=== PATIENT | female | born 1955 | race Caucasian/White ===

== ENCOUNTER 2016-05-07 23:04 | Observation (INO) | payer BC ==
[~2016-05-07] VITALS: Ht 144.8 cm; Wt 87.1 kg
[~2016-05-07 23:04] MED LIST: ADVAIR HFA120 INHALA IH; ALLERGY RELIEF10 M1 PO; ALPRAZOLAM0.5 MG PO; ASPIRIN325 MG PO; ATORVASTATIN CA20 MG PO; BAYER ASPIRIN325 M1 PO; BREO ELLIPTA I1 EACH IH; COUMADIN,JANTOVE6 MG PO; COUMADIN5 MG PO; DEMADEX100 MG PO; DIOVAN HCT 11 TABLE1 PO; DIOVAN HCT 1601 EAC1 PO; FLEXERIL10 MG PO; FLONASE16 G1 BOTH NARES; HYDROCODON-ACE1 EAC7 PO; IRON325 M1 PO; LYRICA150 MG PO; MIRTAZAPINE15 MG PO; NEXIUM20 MG PO; OMEPRAZOLE40 M1 PO; PAROXETINE HCL40 MG PO; POTASSIUM CHLO20 MEQ PO; PROBENECID500 MG PO; SPIRIVA1 INHALATI IH; SYNTHROID150 MCG PO; SYNTHROID200 MCG PO; TRAMADOL HCL50 MG PO; TRAZODONE HCL50 MG PO; VYTORIN 10-401 EACH PO; XANAX0.5 MG PO
[2016-05-08 00:03] LABS: HEMATOCRIT 31.5 % (36.0-46.0); MCH 28.7 PG (29.0-34.0); MCHC 32.4 G/DL (30.0-36.0); MCV 88.7 FL (83-99); MEAN PLAT.VOLUME 10.3 uM^3 (9.5-12.4); PLATELET COUNT 159 K/uL (156-360); RBC DIS.WIDTH-CV 14.7 % (11.8-14.6); RBC DIS.WIDTH-SD 46.1 % (39-53); RED BLOOD COUNT 3.55 M/uL (3.80-5.20); WHITE BLOOD COUNT 5.5 K/uL (4.1-10.2)
[2016-05-08 00:28] LABS: CHLORIDE 107 mEq/L (99-109); POTASSIUM 4.4 mEq/L (3.7-5.4); SODIUM 142 mEq/L (136-147)
[2016-05-08 00:31] LABS: ANION GAP 12 MEQ/L (2-14)
[2016-05-08 00:32] LABS: PTT 71.7 (25-32)
[2016-05-08 00:33] LABS: INTER. NORMALIZED RATIO 12.3; PROTHROMBIN TIME 135.9 (9.2-11.2)
[2016-05-08 00:38] LABS: GLUCOSE 94 mg/dL (70-99)
[2016-05-08 00:42] LABS: GFR ESTIMATE (CALCULATED) 44 mL/min/
[2016-05-08 00:43] LABS: UREA NITROGEN (BUN) 25 mg/dL (9-23)
[2016-05-08] MEDS ORDERED: ZYRTEC10 M3 PO (01:35)
[2016-05-08] MEDS ORDERED: LITE COAT ASPI325 M1 PO (01:36)
[2016-05-08] MEDS ORDERED: TRAMADOL HCL50 MG PO (01:36)
[2016-05-08] MEDS ORDERED: COUMADIN1 MG PO (01:36)
[2016-05-08] MEDS ORDERED: TRAZODONE HCL150 MG PO (01:37)
[2016-05-08] MEDS ORDERED: ALPRAZOLAM0.5 MG PO ×2 (01:37)
[2016-05-08] MEDS ORDERED: POTASSIUM CHLO20 ME2 PO (01:38)
[2016-05-08] MEDS ORDERED: VENLAFAXINE HC150 M1 PO (01:39)
[2016-05-08] MEDS ORDERED: TYLENOL ARTHRI650 MG PO (01:39)
[2016-05-08 04:57] VITALS: BP 131/61
[2016-05-08 08:40] VITALS: BP 121/66
[2016-05-08 10:03] LABS: INTER. NORMALIZED RATIO 2.8; PROTHROMBIN TIME 29.3 (9.2-11.2)
[2016-05-08 11:35] LABS: HEMATOCRIT 30.1 % (36.0-46.0); MCH 28.3 PG (29.0-34.0); MCHC 31.9 G/DL (30.0-36.0); MCV 88.8 FL (83-99); MEAN PLAT.VOLUME 10.9 uM^3 (9.5-12.4); PLATELET COUNT 156 K/uL (156-360); RBC DIS.WIDTH-CV 14.9 % (11.8-14.6); RBC DIS.WIDTH-SD 48.3 % (39-53); RED BLOOD COUNT 3.39 M/uL (3.80-5.20); WHITE BLOOD COUNT 5.2 K/uL (4.1-10.2)
[2016-05-08 11:51] LABS: ANION GAP 11 MEQ/L (2-14); CHLORIDE 103 MEQ/L (99-109); GFR ESTIMATE (CALCULATED) 54 mL/min/; GLUCOSE 127 mg/dL (70-99); POTASSIUM 3.7 MEQ/L (3.7-5.4); SAMPLE HEMOLYSIS CHECK 0; SAMPLE ICTERIC CHECK 0; SAMPLE LIPEMIA CHECK 0; SODIUM 139 MEQ/L (136-147); UREA NITROGEN (BUN) 21 mg/dL (9-23)
[2016-05-08] MEDS ORDERED: POTASSIUM CHLO10 ME4 PO (12:43)
[2016-05-08 12:51] VITALS: BP 124/60
[2016-05-08 16:31] VITALS: BP 136/65
[2016-05-08] MEDS ORDERED: VICODIN HP 10-1 EACH PO (19:06)
[2016-05-08] MEDS ORDERED: LEVAQUIN500 MG PO (19:06)
== END 2016-05-08 20:20 | disposition home health service (06) ==
LOC: EME 23:04 → EDOF 05-08 01:37 → 5WEST 05-08 04:33
PROVIDERS: Emergency Medicine
DX: R04.0 Epistaxis (principal); T45.515A Adverse effect of anticoagulants, initial encounter; R23.3 Spontaneous ecchymoses; J32.9 Chronic sinusitis, unspecified; I48.2 Chronic atrial fibrillation; Z79.01 Long term (current) use of anticoagulants; J45.909 Unspecified asthma, uncomplicated; K21.9 Gastro-esophageal reflux disease without esophagitis; I10 Essential (primary) hypertension; E03.9 Hypothyroidism, unspecified; F32.9 Major depressive disorder, single episode, unspecified; G89.29 Other chronic pain; I50.9 Heart failure, unspecified; M79.7 Fibromyalgia; Z91.19 Patient's noncompliance with other medical treatment and regimen; E66.9 Obesity, unspecified; M19.90 Unspecified osteoarthritis, unspecified site
CPT/HCPCS: 80048; 85027; 85610; 85730; 86850; 86900; 86901; 94640; 99281; 99285; G0378; J3430; J7050

== ENCOUNTER 2016-05-22 05:42 | Inpatient (IN) | payer BC ==
[~2016-05-22] VITALS: Ht 144.8 cm; Wt 94.0 kg
[2016-05-22] VITALS (29 sets, daily range): BP systolic 91–119; BP diastolic 24–78
[~2016-05-22 05:42] MED LIST changes: +COUMADIN1 MG PO; +LEVAQUIN500 MG PO; +LITE COAT ASPI325 M1 PO; +POTASSIUM CHLO10 ME4 PO; +POTASSIUM CHLO20 ME2 PO; +TRAZODONE HCL150 MG PO; +TYLENOL ARTHRI650 MG PO; +VENLAFAXINE HC150 M1 PO; +VICODIN HP 10-1 EACH PO; +ZYRTEC10 M3 PO
[2016-05-22 06:29] LABS: HEMATOCRIT 25.6 % (36.0-46.0); MCH 28.6 PG (29.0-34.0); MCHC 31.6 G/DL (30.0-36.0); MCV 90.5 FL (83-99); MEAN PLAT.VOLUME 10.7 uM^3 (9.5-12.4); PLATELET COUNT 176 K/uL (156-360); RBC DIS.WIDTH-CV 15.9 % (11.8-14.6); RBC DIS.WIDTH-SD 50.6 % (39-53); RED BLOOD COUNT 2.83 M/uL (3.80-5.20)
[2016-05-22 06:44] LABS: PROTHROMBIN TIME 54.3 (9.2-11.2); PTT 34.5 (25-32)
[2016-05-22 06:45] LABS: INTER. NORMALIZED RATIO 5.1
[2016-05-22 06:48] LABS: TROP-I INTERPRETATION NEGATIVE; TROPONIN-I 0.01 ng/mL (0.0-0.30)
[2016-05-22 08:27] LABS: ANION GAP 15 MEQ/L (2-14); CHLORIDE 111 MEQ/L (99-109); GFR ESTIMATE (CALCULATED) 30 mL/min/; GLUCOSE 108 mg/dL (70-99); POTASSIUM 4.7 MEQ/L (3.7-5.4); SAMPLE HEMOLYSIS CHECK 0; SAMPLE ICTERIC CHECK 0; SAMPLE LIPEMIA CHECK 0; SODIUM 144 MEQ/L (136-147); UREA NITROGEN (BUN) 35 mg/dL (9-23)
[2016-05-22] MEDS ORDERED: KLOR-CON M2020 MEQ PO (09:16)
[2016-05-22] MEDS ORDERED: WARFARIN SODIUM6 MG PO (09:17)
[2016-05-22 11:20] LABS: METH RESISTANT S AUREUS PCR NEGATIVE (NEGATIVE)
[2016-05-22 11:22] LABS: PROBE CHECK PASS; SPECIMEN PROCESSING CONTROL PASS
[2016-05-22 13:10] LABS: ADD MIUA? NO; BILIRUBIN NEGATIVE; BLOOD NEGATIVE; COLOR YELLOW ((YELLOW)); GLUCOSE (STRIP) NEGATIVE; KETONES NEGATIVE; LEUKOCYTES NEGATIVE; NITRITE NEGATIVE; PROTEIN (STRIP) NEGATIVE; SPECIFIC GRAVITY 1.012 (1.000-1.030); UCUL ADDED? NO; UROBILINOGEN 0.2 MG/DL (0.2-1.0)
[2016-05-22 17:10] LABS: MAGNESIUM 1.4 mg/dl (1.3-2.7)
[2016-05-22 17:11] LABS: EOSINOPHIL (%) 2.3 % (0-5); EOSINOPHIL COUNT 0.1 K/uL (0-0.3); HEMATOCRIT 17.1 % (36.0-46.0); IMMATURE GRANULOCYTE (%) 0.2 % (0.0-0.7); LYMPHOCYTE COUNT 1.2 K/uL (1.0-2.8); MCH 28.9 PG (29.0-34.0); MCHC 32.2 G/DL (30.0-36.0); MONOCYTE (%) 12.9 % (3-12); MONOCYTE COUNT 0.6 K/uL (0-0.8); NEUTROPHIL (%) 60.2 % (45-76); NEUTROPHIL COUNT 2.9 K/uL (1.8-6.4); PTT 26.4 (25-32); RBC DIS.WIDTH-CV 16.6 % (11.8-14.6); RBC DIS.WIDTH-SD 54.2 % (39-53); WHITE BLOOD COUNT 4.9 K/uL (4.1-10.2)
[2016-05-22 17:15] LABS: TROP-I INTERPRETATION NEGATIVE; TROPONIN-I 0.02 ng/mL (0.0-0.30)
[2016-05-22 17:22] LABS: INTER. NORMALIZED RATIO 1.7; PROTHROMBIN TIME 17.4 (9.2-11.2)
[2016-05-22 18:17] LABS: MEAN PLAT.VOLUME 10.5 uM^3 (9.5-12.4); PLAT.SUFFICIENCY DECREASED; PLATELET COUNT 128 K/uL (156-360); USER ID LYM
[2016-05-23] VITALS (32 sets, daily range): BP systolic 93–144; BP diastolic 33–84
[2016-05-23 01:52] LABS: MCH 28.4 PG (29.0-34.0); MCHC 32.9 G/DL (30.0-36.0); MCV 86.4 FL (83-99); PLATELET COUNT 134 K/uL (156-360); RBC DIS.WIDTH-CV 16.2 % (11.8-14.6); RBC DIS.WIDTH-SD 49.1 % (39-53); RED BLOOD COUNT 3.24 M/uL (3.80-5.20)
[2016-05-23 01:56] LABS: INTER. NORMALIZED RATIO 1.3; PROTHROMBIN TIME 13.4 (9.2-11.2)
[2016-05-23 06:02] LABS: HEMATOCRIT 25.9 % (36.0-46.0); MCH 28.4 PG (29.0-34.0); MCHC 32.8 G/DL (30.0-36.0); MCV 86.6 FL (83-99); MEAN PLAT.VOLUME 10.4 uM^3 (9.5-12.4); PLATELET COUNT 123 K/uL (156-360); RBC DIS.WIDTH-CV 16.8 % (11.8-14.6); RBC DIS.WIDTH-SD 52.4 % (39-53); RED BLOOD COUNT 2.99 M/uL (3.80-5.20); WHITE BLOOD COUNT 5.3 K/uL (4.1-10.2)
[2016-05-23 06:10] LABS: EOSINOPHIL (%) 2.5 % (0-5); EOSINOPHIL COUNT 0.1 K/uL (0-0.3); IMMATURE GRANULOCYTE (%) 0.2 % (0.0-0.7); LYMPHOCYTE COUNT 1.6 K/uL (1.0-2.8); MONOCYTE (%) 8.7 % (3-12); MONOCYTE COUNT 0.5 K/uL (0-0.8); NEUTROPHIL (%) 57.5 % (45-76); NEUTROPHIL COUNT 3.1 K/uL (1.8-6.4)
[2016-05-23 06:25] LABS: INTER. NORMALIZED RATIO 1.2; PROTHROMBIN TIME 12.2 (9.2-11.2)
[2016-05-23 06:32] LABS: ANION GAP 7 MEQ/L (2-14); CHLORIDE 113 MEQ/L (99-109); GFR ESTIMATE (CALCULATED) 54 mL/min/; GLUCOSE 94 mg/dL (70-99); POTASSIUM 4.3 MEQ/L (3.7-5.4); SAMPLE HEMOLYSIS CHECK 0; SAMPLE ICTERIC CHECK 0; SAMPLE LIPEMIA CHECK 0; SODIUM 144 MEQ/L (136-147); UREA NITROGEN (BUN) 48 mg/dL (9-23)
[2016-05-23 12:43] LABS: HEMATOCRIT 32.1 % (36.0-46.0); MCH 28.6 PG (29.0-34.0); MCV 86.8 FL (83-99); MEAN PLAT.VOLUME 10.4 uM^3 (9.5-12.4); PLATELET COUNT 120 K/uL (156-360); RBC DIS.WIDTH-CV 16.9 % (11.8-14.6); RBC DIS.WIDTH-SD 52.3 % (39-53); WHITE BLOOD COUNT 6.8 K/uL (4.1-10.2)
[2016-05-23 20:45] LABS: HEMATOCRIT 29.2 % (36.0-46.0); MCHC 33.6 G/DL (30.0-36.0); MCV 86.4 FL (83-99); MEAN PLAT.VOLUME 11.3 uM^3 (9.5-12.4); PLATELET COUNT 120 K/uL (156-360); RBC DIS.WIDTH-CV 16.7 % (11.8-14.6); RBC DIS.WIDTH-SD 51.2 % (39-53); RED BLOOD COUNT 3.38 M/uL (3.80-5.20); WHITE BLOOD COUNT 5.8 K/uL (4.1-10.2)
[2016-05-23 20:52] LABS: CHLORIDE 114 mEq/L (99-109); SODIUM 143 mEq/L (136-147)
[2016-05-23 20:53] LABS: MAGNESIUM 1.6 mg/dL (1.3-2.7)
[2016-05-23 20:54] LABS: GLUCOSE 109 mg/dL (70-99)
[2016-05-23 20:55] LABS: ANION GAP 7 MEQ/L (2-14)
[2016-05-23 20:58] LABS: GFR ESTIMATE (CALCULATED) > 59 mL/min/
[2016-05-23 20:59] LABS: UREA NITROGEN (BUN) 42 mg/dL (9-23)
[2016-05-24] VITALS (13 sets, daily range): BP systolic 95–132; BP diastolic 35–58
[2016-05-24 03:54] LABS: HEMATOCRIT 28.9 % (36.0-46.0); MCH 28.5 PG (29.0-34.0); MCHC 32.9 G/DL (30.0-36.0); MCV 86.8 FL (83-99); MEAN PLAT.VOLUME 10.1 uM^3 (9.5-12.4); PLATELET COUNT 127 K/uL (156-360); RBC DIS.WIDTH-CV 16.5 % (11.8-14.6); RBC DIS.WIDTH-SD 51.3 % (39-53); RED BLOOD COUNT 3.33 M/uL (3.80-5.20); WHITE BLOOD COUNT 5.2 K/uL (4.1-10.2)
[2016-05-24 12:20] LABS: HEMATOCRIT 29.1 % (36.0-46.0); MCH 28.9 PG (29.0-34.0); MCV 87.7 FL (83-99); MEAN PLAT.VOLUME 10.8 uM^3 (9.5-12.4); PLATELET COUNT 123 K/uL (156-360); RBC DIS.WIDTH-CV 16.5 % (11.8-14.6); RBC DIS.WIDTH-SD 52.2 % (39-53); RED BLOOD COUNT 3.32 M/uL (3.80-5.20); WHITE BLOOD COUNT 5.2 K/uL (4.1-10.2)
[2016-05-24 17:44] LABS: HEMATOCRIT 28.3 % (36.0-46.0); MCH 28.8 PG (29.0-34.0); MCHC 33.2 G/DL (30.0-36.0); MCV 86.8 FL (83-99); PLATELET COUNT 121 K/uL (156-360); RBC DIS.WIDTH-CV 16.4 % (11.8-14.6); RBC DIS.WIDTH-SD 51.9 % (39-53); RED BLOOD COUNT 3.26 M/uL (3.80-5.20)
[2016-05-24 19:43] LABS: HEMATOCRIT 27.9 % (36.0-46.0); MCH 28.8 PG (29.0-34.0); MCV 87.5 FL (83-99); MEAN PLAT.VOLUME 10.2 uM^3 (9.5-12.4); PLATELET COUNT 137 K/uL (156-360); RBC DIS.WIDTH-CV 16.2 % (11.8-14.6); RBC DIS.WIDTH-SD 49.5 % (39-53); RED BLOOD COUNT 3.19 M/uL (3.80-5.20); WHITE BLOOD COUNT 5.6 K/uL (4.1-10.2)
[2016-05-25 05:08] VITALS: BP 139/63
[2016-05-25 06:57] LABS: HEMATOCRIT 28.8 % (36.0-46.0); MCH 28.7 PG (29.0-34.0); MCHC 32.6 G/DL (30.0-36.0); MCV 88.1 FL (83-99); MEAN PLAT.VOLUME 10.5 uM^3 (9.5-12.4); PLATELET COUNT 126 K/uL (156-360); RBC DIS.WIDTH-CV 16.2 % (11.8-14.6); RED BLOOD COUNT 3.27 M/uL (3.80-5.20); WHITE BLOOD COUNT 4.4 K/uL (4.1-10.2)
[2016-05-25 07:26] LABS: ALKALINE PHOSPHATASE 91 IU/L (3-129); ANION GAP 8 MEQ/L (2-14); CHLORIDE 108 MEQ/L (99-109); GFR ESTIMATE (CALCULATED) > 59 mL/min/; GLUCOSE 99 mg/dL (70-99); POTASSIUM 3.6 MEQ/L (3.7-5.4); SAMPLE HEMOLYSIS CHECK 0; SAMPLE ICTERIC CHECK 0; SAMPLE LIPEMIA CHECK 0; SODIUM 141 MEQ/L (136-147); TOTAL BILIRUBIN 0.6 MG/DL (0.0-1.0)
[2016-05-25 07:27] LABS: UREA NITROGEN (BUN) 19 mg/dL (9-23)
[2016-05-25 07:45] VITALS: BP 127/57
[2016-05-25 11:28] VITALS: BP 121/58
[2016-05-25 15:40] VITALS: BP 141/75
[2016-05-25 19:44] LABS: HEMATOCRIT 32.8 % (36.0-46.0); MCH 28.6 PG (29.0-34.0); MCHC 32.3 G/DL (30.0-36.0); MCV 88.4 FL (83-99); MEAN PLAT.VOLUME 10.7 uM^3 (9.5-12.4); RBC DIS.WIDTH-CV 16.3 % (11.8-14.6); RBC DIS.WIDTH-SD 51.6 % (39-53); RED BLOOD COUNT 3.71 M/uL (3.80-5.20)
[2016-05-25 20:06] LABS: PLATELET COUNT 168 K/uL (156-360); WHITE BLOOD COUNT 5.9 K/uL (4.1-10.2)
[2016-05-25 21:24] VITALS: BP 107/54
[2016-05-26 00:29] VITALS: BP 106/55
[2016-05-26 05:40] VITALS: BP 92/54
[2016-05-26 06:06] VITALS: BP 115/57
[2016-05-26 07:13] LABS: INTER. NORMALIZED RATIO 1.1; PROTHROMBIN TIME 10.7 (9.2-11.2)
[2016-05-26 07:20] LABS: EOSINOPHIL (%) ND % (0-5); HEMATOCRIT ND % (36.0-46.0); IMM.PLATELET FRACTION ND (1-7); MCH ND PG (29.0-34.0); MCHC ND G/DL (30.0-36.0); MCV ND FL (83-99); MEAN PLAT.VOLUME ND uM^3 (9.5-12.4); MONOCYTE (%) ND % (3-12); NEUTROPHIL (%) ND % (45-76); PLATELET COUNT ND K/uL (156-360); RBC DIS.WIDTH-CV ND % (11.8-14.6); RBC DIS.WIDTH-SD ND % (39-53); RED BLOOD COUNT ND M/uL (3.80-5.20); WHITE BLOOD COUNT ND K/uL (4.1-10.2)
[2016-05-26 07:21] LABS: BASOPHIL COUNT ND K/uL (0-0.1); EOSINOPHIL COUNT ND K/uL (0-0.3); IMMATURE GRANULOCYTE (%) ND % (0.0-0.7); IMMATURE GRANULOCYTE COUNT ND K/uL; LYMPHOCYTE COUNT ND K/uL (1.0-2.8); MONOCYTE COUNT ND K/uL (0-0.8); NEUTROPHIL COUNT ND K/uL (1.8-6.4); NRBC (%) ND /100 WBC (0-0); NRBC COUNT ND K/uL (0-0)
[2016-05-26 08:44] LABS: HEMATOCRIT 28.5 % (36.0-46.0); MCH 29.1 PG (29.0-34.0); MCHC 32.6 G/DL (30.0-36.0); MCV 89.1 FL (83-99); MEAN PLAT.VOLUME 10.9 uM^3 (9.5-12.4); PLATELET COUNT 155 K/uL (156-360); RBC DIS.WIDTH-CV 16.2 % (11.8-14.6); RBC DIS.WIDTH-SD 51.8 % (39-53); WHITE BLOOD COUNT 4.7 K/uL (4.1-10.2)
[2016-05-26 08:59] LABS: EOSINOPHIL (%) 4.1 % (0-5); EOSINOPHIL COUNT 0.2 K/uL (0-0.3); IMMATURE GRANULOCYTE (%) 0.2 % (0.0-0.7); LYMPHOCYTE COUNT 1.1 K/uL (1.0-2.8); MONOCYTE COUNT 0.4 K/uL (0-0.8); NEUTROPHIL (%) 63.7 % (45-76)
[2016-05-26 13:40] VITALS: BP 110/53
[2016-05-26 18:15] LABS: MCH 29.4 PG (29.0-34.0); MCHC 33.1 G/DL (30.0-36.0); MCV 88.7 FL (83-99); MEAN PLAT.VOLUME 10.9 uM^3 (9.5-12.4); PLATELET COUNT 154 K/uL (156-360); RBC DIS.WIDTH-CV 16.2 % (11.8-14.6); RBC DIS.WIDTH-SD 51.8 % (39-53); RED BLOOD COUNT 3.27 M/uL (3.80-5.20); WHITE BLOOD COUNT 4.9 K/uL (4.1-10.2)
[2016-05-26 18:48] LABS: EOSINOPHIL (%) 3.7 % (0-5); EOSINOPHIL COUNT 0.2 K/uL (0-0.3); IMMATURE GRANULOCYTE (%) 0.2 % (0.0-0.7); MONOCYTE COUNT 0.5 K/uL (0-0.8); NEUTROPHIL (%) 63.9 % (45-76); NEUTROPHIL COUNT 3.1 K/uL (1.8-6.4)
[2016-05-26 19:22] VITALS: BP 112/54
[2016-05-26 23:21] VITALS: BP 114/55
[2016-05-27 03:59] VITALS: BP 104/58
[2016-05-27 07:27] LABS: MCV 87.9 FL (83-99); MEAN PLAT.VOLUME 10.6 uM^3 (9.5-12.4); PLATELET COUNT 148 K/uL (156-360); RBC DIS.WIDTH-CV 16.3 % (11.8-14.6); RED BLOOD COUNT 3.07 M/uL (3.80-5.20); WHITE BLOOD COUNT 3.5 K/uL (4.1-10.2)
[2016-05-27 07:40] VITALS: BP 112/51
[2016-05-27 07:40] LABS: EOSINOPHIL (%) 5.2 % (0-5); EOSINOPHIL COUNT 0.2 K/uL (0-0.3); LYMPHOCYTE COUNT 0.7 K/uL (1.0-2.8); MONOCYTE (%) 13.2 % (3-12); MONOCYTE COUNT 0.5 K/uL (0-0.8); NEUTROPHIL (%) 60.6 % (45-76); NEUTROPHIL COUNT 2.1 K/uL (1.8-6.4)
[2016-05-27 07:48] LABS: ANION GAP 8 MEQ/L (2-14); CHLORIDE 109 MEQ/L (99-109); GFR ESTIMATE (CALCULATED) 54 mL/min/; GLUCOSE 89 mg/dL (70-99); POTASSIUM 3.9 MEQ/L (3.7-5.4); SAMPLE HEMOLYSIS CHECK 0; SAMPLE ICTERIC CHECK 0; SAMPLE LIPEMIA CHECK 0; SODIUM 142 MEQ/L (136-147); UREA NITROGEN (BUN) 17 mg/dL (9-23)
[2016-05-27 15:35] VITALS: BP 122/58
[2016-05-27 18:17] LABS: HEMATOCRIT 28.1 % (36.0-46.0); MCH 28.9 PG (29.0-34.0); MCHC 32.4 G/DL (30.0-36.0); MCV 89.2 FL (83-99); MEAN PLAT.VOLUME 11.2 uM^3 (9.5-12.4); PLATELET COUNT 141 K/uL (156-360); RBC DIS.WIDTH-CV 16.4 % (11.8-14.6); RBC DIS.WIDTH-SD 52.2 % (39-53); RED BLOOD COUNT 3.15 M/uL (3.80-5.20); WHITE BLOOD COUNT 3.6 K/uL (4.1-10.2)
[2016-05-27 19:15] VITALS: BP 107/53
[2016-05-27 21:09] LABS: HEMATOCRIT 28.2 % (36.0-46.0); MCH 29.4 PG (29.0-34.0); MCV 89.2 FL (83-99); MEAN PLAT.VOLUME 11.2 uM^3 (9.5-12.4); PLATELET COUNT 149 K/uL (156-360); RBC DIS.WIDTH-CV 16.2 % (11.8-14.6); RBC DIS.WIDTH-SD 51.1 % (39-53); RED BLOOD COUNT 3.16 M/uL (3.80-5.20); WHITE BLOOD COUNT 3.6 K/uL (4.1-10.2)
[2016-05-27 21:16] LABS: EOSINOPHIL COUNT 0.1 K/uL (0-0.3); IMMATURE GRANULOCYTE (%) 0.3 % (0.0-0.7); LYMPHOCYTE COUNT 0.5 K/uL (1.0-2.8); MONOCYTE (%) 14.3 % (3-12); MONOCYTE COUNT 0.5 K/uL (0-0.8); NEUTROPHIL COUNT 2.5 K/uL (1.8-6.4)
[2016-05-27 23:20] VITALS: BP 138/60
[2016-05-28] MEDS ORDERED: GABAPENTIN100 MG PO (01:20)
[2016-05-28] MEDS ORDERED: METHYLPREDNISOL16 MG PO (01:20)
[2016-05-28] MEDS ORDERED: FLONASE16 G1 BOTH NARES (01:20)
[2016-05-28] MEDS ORDERED: LEVOFLOXACIN250 MG PO (01:20)
[2016-05-28] MEDS ORDERED: HYDROMORPHONE HC4 MG PO (01:20)
[2016-05-28] MEDS ORDERED: DULOXETINE HCL60 MG PO (01:20)
[2016-05-28] MEDS ORDERED: PANTOPRAZOLE SO40 MG PO (01:20)
[2016-05-28 06:40] LABS: HEMATOCRIT 29.9 % (36.0-46.0); MCH 29.3 PG (29.0-34.0); MCHC 32.8 G/DL (30.0-36.0); MCV 89.3 FL (83-99); MEAN PLAT.VOLUME 10.7 uM^3 (9.5-12.4); PLATELET COUNT 156 K/uL (156-360); RBC DIS.WIDTH-CV 16.7 % (11.8-14.6); RBC DIS.WIDTH-SD 53.5 % (39-53); RED BLOOD COUNT 3.35 M/uL (3.80-5.20); WHITE BLOOD COUNT 3.7 K/uL (4.1-10.2)
[2016-05-28 06:53] LABS: EOSINOPHIL (%) 0.8 % (0-5); IMMATURE GRANULOCYTE (%) 0.3 % (0.0-0.7); LYMPHOCYTE COUNT 0.5 K/uL (1.0-2.8); MONOCYTE (%) 3.2 % (3-12); MONOCYTE COUNT 0.1 K/uL (0-0.8); NEUTROPHIL (%) 82.2 % (45-76); NEUTROPHIL COUNT 3.1 K/uL (1.8-6.4)
[2016-05-28 07:30] VITALS: BP 103/54
[2016-05-28 12:29] VITALS: BP 128/60
[2016-05-28 16:07] VITALS: BP 122/57
[2016-05-28 18:30] LABS: HEMATOCRIT 29.8 % (36.0-46.0); MCH 29.3 PG (29.0-34.0); MCHC 32.6 G/DL (30.0-36.0); MEAN PLAT.VOLUME 10.6 uM^3 (9.5-12.4); PLATELET COUNT 157 K/uL (156-360); RBC DIS.WIDTH-CV 16.5 % (11.8-14.6); RBC DIS.WIDTH-SD 52.4 % (39-53); RED BLOOD COUNT 3.31 M/uL (3.80-5.20); WHITE BLOOD COUNT 3.7 K/uL (4.1-10.2)
== END 2016-05-28 19:30 | disposition home or self-care (01) | DRG 378 ==
LOC: EME 05:42 → 4WEST 08:45 → 2EASTP 08:45 → 4EAST 08:45 → EDOF 08:45 → 4WEST 09:40 → 4EAST 05-24 23:19 → 2EASTP 05-26 05:52
PROVIDERS: Emergency Medicine; Internal Medicine; Internal Medicine Critical Care Medicine; Internal Medicine Gastroenterology; Specialist
PROC: 3E0 Administration, Physiological Systems and Anatomical Regions, Introduction (ICD-10-PCS; principal; 2016-05-23)
PROC: 0D568ZZ Destruction of Stomach, Via Natural or Artificial Opening Endoscopic (ICD-10-PCS; principal; 2016-05-23)
DX: K92.2 Gastrointestinal hemorrhage, unspecified (principal); N17.9 Acute kidney failure, unspecified; I95.9 Hypotension, unspecified; J44.9 Chronic obstructive pulmonary disease, unspecified; Q24.9 Congenital malformation of heart, unspecified; I48.2 Chronic atrial fibrillation; E03.9 Hypothyroidism, unspecified; I12.9 Hypertensive chronic kidney disease with stage 1 through stage 4 chronic kidney disease, or unspecified chronic kidney disease; M10.9 Gout, unspecified; E86.1 Hypovolemia; K92.1 Melena; R51 Headache; R13.10 Dysphagia, unspecified; D64.9 Anemia, unspecified; I45.10 Unspecified right bundle-branch block; N18.9 Chronic kidney disease, unspecified; F32.9 Major depressive disorder, single episode, unspecified; R74.8 Abnormal levels of other serum enzymes; G47.30 Sleep apnea, unspecified; K21.9 Gastro-esophageal reflux disease without esophagitis; T45.515A Adverse effect of anticoagulants, initial encounter; I50.9 Heart failure, unspecified; Z88.2 Allergy status to sulfonamides; Z79.01 Long term (current) use of anticoagulants
CPT/HCPCS: 70220; 71010; 71020; 80048; 80048 91; 80053; 81003; 83735; 84100; 84484; 85025; 85025 91; 85027; 85610; 85730; 86850; 86900; 86901; 86920; 87641; 93005; 94640; 94640 76; 94760; 94799; 99202; 99281; 99285; C9113; J0696; J2250; J2930; J3430; J7030; J7050; J7509; P9016; P9017

== ENCOUNTER 2016-07-30 15:50 | Inpatient (IN) | payer BC ==
[~2016-07-30] VITALS: Ht 149.9 cm; Wt 83.0 kg
[~2016-07-30 15:50] MED LIST changes: +DULOXETINE HCL60 MG PO; +GABAPENTIN100 MG PO; +HYDROMORPHONE HC4 MG PO; +KLOR-CON M2020 MEQ PO; +LEVOFLOXACIN250 MG PO; +METHYLPREDNISOL16 MG PO; +PANTOPRAZOLE SO40 MG PO; +WARFARIN SODIUM6 MG PO
[2016-07-30 16:49] LABS: EOSINOPHIL COUNT 0.1 K/uL (0-0.3); HEMATOCRIT 39.8 % (36.0-46.0); IMMATURE GRANULOCYTE (%) 0.2 % (0.0-0.7); INSTRUMENT ABS NEUTROPHIL CT 6.6 K/uL; LYMPHOCYTE COUNT 0.9 K/uL (1.0-2.8); MCH 27.9 PG (29.0-34.0); MCHC 31.9 G/DL (30.0-36.0); MCV 87.3 FL (83-99); MEAN PLAT.VOLUME 10.7 uM^3 (9.5-12.4); MONOCYTE (%) 7.3 % (3-12); MONOCYTE COUNT 0.6 K/uL (0-0.8); NEUTROPHIL (%) 79.9 % (45-76); NEUTROPHIL COUNT 6.6 K/uL (1.8-6.4); PLATELET COUNT 193 K/uL (156-360); RBC DIS.WIDTH-CV 13.2 % (11.8-14.6); RBC DIS.WIDTH-SD 42.5 % (39-53); RED BLOOD COUNT 4.56 M/uL (3.80-5.20); WHITE BLOOD COUNT 8.2 K/uL (4.1-10.2)
[2016-07-30 16:50] LABS: CARBON DIOXIDE (BICARBONATE) 33.3 MEQ/L (20-31)
[2016-07-30 16:58] LABS: CHLORIDE 105 mEq/L (99-109); POTASSIUM 3.9 mEq/L (3.7-5.4); SODIUM 141 mEq/L (136-147)
[2016-07-30 17:00] LABS: GLUCOSE 111 mg/dL (70-99)
[2016-07-30 17:01] LABS: ANION GAP 11 MEQ/L (2-14)
[2016-07-30 17:04] LABS: GFR ESTIMATE (CALCULATED) > 59 mL/min/; UREA NITROGEN (BUN) 19 mg/dL (9-23)
[2016-07-30 17:11] LABS: TROP-I INTERPRETATION NEGATIVE; TROPONIN-I 0.03 ng/mL (0.0-0.30)
[2016-07-30 18:47] LABS: ADD MIUA? YES; BILIRUBIN NEGATIVE; BLOOD NEGATIVE; COLOR YELLOW ((YELLOW)); GLUCOSE (STRIP) NEGATIVE; KETONES NEGATIVE; LEUKOCYTES TRACE; NITRITE NEGATIVE; PROTEIN (STRIP) NEGATIVE; SPECIFIC GRAVITY 1.019 (1.000-1.030); UROBILINOGEN 0.2 MG/DL (0.2-1.0)
[2016-07-30 19:04] LABS: BACTERIA NONE SEEN /HPF; EPITHELIAL CELLS RARE /HPF; GRANULAR CASTS 0-5 /LPF; HYALINE CASTS 0-5 /LPF; MUCUS TRACE /LPF; RED BLOOD CELLS 0-5 /HPF (0-5); WHITE BLOOD CELLS 0-5 /HPF (0-5)
[2016-07-30 22:48] VITALS: BP 117/52
[2016-07-31 03:33] VITALS: BP 150/65
[2016-07-31 06:43] LABS: INTER. NORMALIZED RATIO 1.1; PROTHROMBIN TIME 11.4 (9.2-11.2)
[2016-07-31 07:21] VITALS: BP 131/60
[2016-07-31 12:16] VITALS: BP 142/72
[2016-07-31 16:25] VITALS: BP 149/73
[2016-07-31] MEDS ORDERED: FLONASE16 G1 BOTH NARES (17:04)
[2016-07-31] MEDS ORDERED: GABAPENTIN600 MG PO (17:04)
[2016-07-31] MEDS ORDERED: PANTOPRAZOLE SO40 MG PO (17:05)
[2016-07-31] MEDS ORDERED: BACLOFEN20 MG PO (17:06)
[2016-07-31] MEDS ORDERED: VENLAFAXINE HC150 M1 PO (17:06)
[2016-07-31] MEDS ORDERED: XARELTO20 MG PO (17:27)
[2016-07-31 19:00] VITALS: BP 140/76
[2016-07-31 23:38] VITALS: BP 120/56
[2016-08-01] VITALS (8 sets, daily range): BP systolic 100–147; BP diastolic 55–70
[2016-08-02 04:52] VITALS: BP 124/58
[2016-08-02 08:20] VITALS: BP 127/73
[2016-08-02 12:29] VITALS: BP 118/57
[2016-08-02 17:38] VITALS: BP 105/65
[2016-08-02] MEDS ORDERED: RISPERIDONE0.5 MG PO ×2 (18:52→18:58)
[2016-08-02 18:57] VITALS: BP 151/63
== END 2016-08-02 22:10 | disposition home or self-care (01) | DRG 887 ==
LOC: EME 15:50 → EDOF 20:05 → 5WEST 20:05 → EDOF 20:34 → 5WEST 22:48 → 5EAST 08-02 17:17
PROVIDERS: Emergency Medicine; Internal Medicine
DX: F44.89 Other dissociative and conversion disorders (principal); R44.3 Hallucinations, unspecified; I47.2 Ventricular tachycardia; R41.82 Altered mental status, unspecified; I48.2 Chronic atrial fibrillation; F32.9 Major depressive disorder, single episode, unspecified; F41.9 Anxiety disorder, unspecified; M79.7 Fibromyalgia; K21.9 Gastro-esophageal reflux disease without esophagitis; D64.9 Anemia, unspecified; M1A.9XX0 Chronic gout, unspecified, without tophus (tophi); E66.9 Obesity, unspecified; Z79.01 Long term (current) use of anticoagulants; Z87.898 Personal history of other specified conditions
CPT/HCPCS: 70450; 70551; 80048; 81003; 82803; 84439; 84443; 84484; 85025; 85610; 93005; 94799; 99281; 99285; C9113; G0378; J1650; J2060

== ENCOUNTER 2016-08-05 22:57 | Inpatient (IN) | payer BC ==
[~2016-08-05] VITALS: Ht 149.9 cm; Wt 87.0 kg
[~2016-08-05 22:57] MED LIST changes: +BACLOFEN20 MG PO; +GABAPENTIN600 MG PO; +RISPERIDONE0.5 MG PO; +XARELTO20 MG PO
[2016-08-05] MEDS ORDERED: HYDROCODON-ACE1 EAC9 PO (23:37)
[2016-08-05] MEDS ORDERED: TRAMADOL HCL50 MG PO (23:39)
[2016-08-05] MEDS ORDERED: POTASSIUM CHLO20 ME1 PO (23:40)
[2016-08-05] MEDS ORDERED: TRAZODONE HCL150 MG PO (23:40)
[2016-08-05] MEDS ORDERED: SPIRIVA1 INHALATI IH (23:41)
[2016-08-05] MEDS ORDERED: BREO ELLIPTA I1 EACH IH (23:41)
[2016-08-05 23:54] LABS: BASE EXCESS -2.3 mEq/L (-3 to +3); BICARBONATE 24.2 mEq/L (22-26); COMMENTS - BLOOD GASES C+A+; DEVICE NC; METHEMOGLOBIN 1.2 % (0-1.5); O2 FLOW 3 L/MIN; PCO2 48 mm Hg (35-45); PO2 68 mm Hg (80-100); SITE RR; pH 7.31 (7.35-7.45)
[2016-08-06 00:12] LABS: EOSINOPHIL (%) 0.3 % (0-5); HEMATOCRIT 39.7 % (36.0-46.0); IMMATURE GRANULOCYTE (%) 0.3 % (0.0-0.7); INSTRUMENT ABS NEUTROPHIL CT 5.3 K/uL; LYMPHOCYTE COUNT 0.8 K/uL (1.0-2.8); MCH 28.1 PG (29.0-34.0); MCHC 30.5 G/DL (30.0-36.0); MCV 92.3 FL (83-99); MEAN PLAT.VOLUME 11.1 uM^3 (9.5-12.4); MONOCYTE (%) 6.6 % (3-12); MONOCYTE COUNT 0.4 K/uL (0-0.8); NEUTROPHIL (%) 80.6 % (45-76); NEUTROPHIL COUNT 5.3 K/uL (1.8-6.4); PLATELET COUNT 156 K/uL (156-360); RBC DIS.WIDTH-CV 13.8 % (11.8-14.6); RBC DIS.WIDTH-SD 46.7 % (39-53); WHITE BLOOD COUNT 6.6 K/uL (4.1-10.2)
[2016-08-06 00:18] LABS: CHLORIDE 107 mEq/L (99-109); SODIUM 139 mEq/L (136-147)
[2016-08-06 00:21] LABS: GLUCOSE 107 mg/dL (70-99); INTER. NORMALIZED RATIO 1.3; PTT 30.7 (25-32)
[2016-08-06 00:22] LABS: ANION GAP 12 MEQ/L (2-14); TOTAL BILIRUBIN 0.4 mg/dL (0.0-1.0)
[2016-08-06 00:24] LABS: ALKALINE PHOSPHATASE 160 IU/L (3-129)
[2016-08-06 00:25] LABS: GFR ESTIMATE (CALCULATED) 32 mL/min/; UREA NITROGEN (BUN) 25 mg/dL (9-23)
[2016-08-06 00:26] LABS: DIRECT BILIRUBIN 0.1 mg/dL (0.0-0.3); POTASSIUM 6.5 mEq/L (3.7-5.4)
[2016-08-06 00:28] LABS: LIPASE 51 U/L (1.0-51.0)
[2016-08-06 00:30] LABS: TROP-I INTERPRETATION NEGATIVE; TROPONIN-I 0.15 ng/mL (0.0-0.30)
[2016-08-06 02:03] LABS: CREATININE 1.4 mg/dL (0.6-1.3); POTASSIUM 5.6 mEq/L (3.7-5.4)
[2016-08-06 08:47] LABS: EOSINOPHIL (%) 1.3 % (0-5); EOSINOPHIL COUNT 0.1 K/uL (0-0.3); HEMATOCRIT 37.1 % (36.0-46.0); IMMATURE GRANULOCYTE (%) 0.2 % (0.0-0.7); INSTRUMENT ABS NEUTROPHIL CT 4.3 K/uL; MCH 28.2 PG (29.0-34.0); MCHC 29.9 G/DL (30.0-36.0); MCV 94.2 FL (83-99); MEAN PLAT.VOLUME 11.2 uM^3 (9.5-12.4); MONOCYTE (%) 8.6 % (3-12); MONOCYTE COUNT 0.5 K/uL (0-0.8); NEUTROPHIL (%) 72.7 % (45-76); NEUTROPHIL COUNT 4.3 K/uL (1.8-6.4); PLATELET COUNT 159 K/uL (156-360); RBC DIS.WIDTH-CV 13.7 % (11.8-14.6); RBC DIS.WIDTH-SD 47.4 % (39-53); RED BLOOD COUNT 3.94 M/uL (3.80-5.20); WHITE BLOOD COUNT 5.9 K/uL (4.1-10.2)
[2016-08-06 08:56] LABS: CHLORIDE 111 mEq/L (99-109); SODIUM 144 mEq/L (136-147)
[2016-08-06 08:58] LABS: GLUCOSE 156 mg/dL (70-99)
[2016-08-06 09:00] LABS: ANION GAP 10 MEQ/L (2-14)
[2016-08-06 09:02] LABS: ALKALINE PHOSPHATASE 141 IU/L (3-129); GFR ESTIMATE (CALCULATED) 44 mL/min/
[2016-08-06 09:03] LABS: UREA NITROGEN (BUN) 23 mg/dL (9-23)
[2016-08-06 09:08] LABS: POTASSIUM 4.9 mEq/L (3.7-5.4); TOTAL BILIRUBIN 0.5 mg/dL (0.0-1.0)
[2016-08-06 23:58] VITALS: BP 144/73
[2016-08-07 10:22] VITALS: BP 131/60
[2016-08-07 16:59] VITALS: BP 124/64
[2016-08-07 23:49] VITALS: BP 124/62
[2016-08-08 03:30] VITALS: BP 132/68
[2016-08-08 07:12] LABS: HEMATOCRIT 32.2 % (36.0-46.0); MCH 28.2 PG (29.0-34.0); MCHC 31.1 G/DL (30.0-36.0); MCV 90.7 FL (83-99); MEAN PLAT.VOLUME 11.2 uM^3 (9.5-12.4); PLATELET COUNT 165 K/uL (156-360); RBC DIS.WIDTH-CV 13.4 % (11.8-14.6); RBC DIS.WIDTH-SD 44.4 % (39-53); RED BLOOD COUNT 3.55 M/uL (3.80-5.20); WHITE BLOOD COUNT 7.2 K/uL (4.1-10.2)
[2016-08-08 07:39] LABS: ALKALINE PHOSPHATASE 115 IU/L (3-129); ANION GAP 7 MEQ/L (2-14); CHLORIDE 100 MEQ/L (99-109); SAMPLE HEMOLYSIS CHECK 0; SAMPLE ICTERIC CHECK 0; SAMPLE LIPEMIA CHECK 0; TOTAL BILIRUBIN 0.7 MG/DL (0.0-1.0); UREA NITROGEN (BUN) 8 mg/dL (9-23)
[2016-08-08 07:43] LABS: GFR ESTIMATE (CALCULATED) > 59 mL/min/; GLUCOSE 104 mg/dL (70-99); POTASSIUM 3.9 MEQ/L (3.7-5.4); SODIUM 136 MEQ/L (136-147)
[2016-08-08 08:49] VITALS: BP 117/63
[2016-08-08 12:06] VITALS: BP 106/53
[2016-08-08] MEDS ORDERED: XANAX0.25 MG PO (14:49)
[2016-08-08] MEDS ORDERED: MIRTAZAPINE7.5 MG PO (14:49)
[2016-08-08 19:12] VITALS: BP 117/54
== END 2016-08-08 22:30 | disposition home or self-care (01) | DRG 92 ==
LOC: EME → EDBD 22:57 → EME 22:57 → EDOF 08-06 02:34 → 5EAST 08-06 02:34
PROVIDERS: Emergency Medicine; Internal Medicine
DX: G92 Toxic encephalopathy (principal); T42.8X5A Adverse effect of antiparkinsonism drugs and other central muscle-tone depressants, initial encounter; F29 Unspecified psychosis not due to a substance or known physiological condition; N17.9 Acute kidney failure, unspecified; M54.5 Low back pain; E87.5 Hyperkalemia; G89.29 Other chronic pain; J45.909 Unspecified asthma, uncomplicated; I50.9 Heart failure, unspecified; F32.9 Major depressive disorder, single episode, unspecified; J44.9 Chronic obstructive pulmonary disease, unspecified; I11.0 Hypertensive heart disease with heart failure; K21.9 Gastro-esophageal reflux disease without esophagitis; E03.9 Hypothyroidism, unspecified; G47.30 Sleep apnea, unspecified; M10.9 Gout, unspecified; M79.7 Fibromyalgia; E87.2 Acidosis; E86.0 Dehydration; I48.2 Chronic atrial fibrillation; E66.9 Obesity, unspecified; F60.9 Personality disorder, unspecified; F41.9 Anxiety disorder, unspecified; S32.019A Unspecified fracture of first lumbar vertebra, initial encounter for closed fracture; W19.XXXA Unspecified fall, initial encounter; Y93.9 Activity, unspecified; Z79.01 Long term (current) use of anticoagulants; Z79.891 Long term (current) use of opiate analgesic
CPT/HCPCS: 36600; 70450; 71020; 72131; 74176; 80047; 80048; 80053; 80076; 81003; 82803; 83690; 84484; 85025; 85027; 85610; 85730; 93005; 94640; 94640 76; 94799; 99281; 99285; C9113; J2310; J7030

== ENCOUNTER 2017-03-04 14:07 | Inpatient (IN) | payer BC ==
[~2017-03-04] VITALS: Ht 144.8 cm; Wt 71.4 kg
[~2017-03-04 14:07] MED LIST changes: -DIOVAN HCT 11 TABLE1 PO; +HYDROCODON-ACE1 EAC9 PO; +MIRTAZAPINE7.5 MG PO; +POTASSIUM CHLO20 ME1 PO; +VALSARTAN-HCTZ1 EAC2 PO; +XANAX0.25 MG PO; +XARELTO15 MG PO; -XARELTO20 MG PO
[2017-03-04 14:50] LABS: BASOPHIL COUNT 0.1 K/uL (0-0.1); EOSINOPHIL (%) 3.9 % (0-5); EOSINOPHIL COUNT 0.3 K/uL (0-0.3); IMMATURE GRANULOCYTE (%) 0.2 % (0.0-0.7); INSTRUMENT ABS NEUTROPHIL CT 3.9 K/uL; LYMPHOCYTE COUNT 1.5 K/uL (1.0-2.8); MCH 31.1 PG (29.0-34.0); MCHC 29.5 G/DL (30.0-36.0); MEAN PLAT.VOLUME 10.5 uM^3 (9.5-12.4); MONOCYTE (%) 10.1 % (3-12); MONOCYTE COUNT 0.7 K/uL (0-0.8); NEUTROPHIL (%) 61.5 % (45-76); NEUTROPHIL COUNT 3.9 K/uL (1.8-6.4); PLATELET COUNT 223 K/uL (156-360); RBC DIS.WIDTH-CV 19.2 % (11.8-14.6); RBC DIS.WIDTH-SD 74.9 % (39-53); RED BLOOD COUNT 3.79 M/uL (3.80-5.20); WHITE BLOOD COUNT 6.4 K/uL (4.1-10.2)
[2017-03-04 14:56] LABS: INTER. NORMALIZED RATIO 1.9; PROTHROMBIN TIME 21.9 SEC (10.2-12.9)
[2017-03-04 14:58] LABS: PTT 36.7 SEC (25-37)
[2017-03-04 14:59] LABS: CHLORIDE 105 mEq/L (99-109); POTASSIUM 4.4 mEq/L (3.7-5.4); SODIUM 142 mEq/L (136-147)
[2017-03-04 15:00] LABS: MAGNESIUM 1.5 mg/dL (1.3-2.7)
[2017-03-04 15:01] LABS: GLUCOSE 146 mg/dL (70-99)
[2017-03-04 15:02] LABS: ANION GAP 12 MEQ/L (2-14)
[2017-03-04 15:03] LABS: TOTAL BILIRUBIN 0.4 mg/dL (0.0-1.0)
[2017-03-04 15:05] LABS: BICARBONATE 28.2 mEq/L (22-26); CARBOXY HGB 2.5 % (0-5); METHEMOGLOBIN 0.9 % (0-1.5); PO2 80 mm Hg (80-100); pH 7.31 (7.35-7.45)
[2017-03-04 15:05] LABS: ALKALINE PHOSPHATASE 144 IU/L (3-129); GFR ESTIMATE (CALCULATED) 35 mL/min/
[2017-03-04 15:06] LABS: COMMENTS - BLOOD GASES A+C+; DEVICE NC; O2 FLOW 4.5 L/MIN; PCO2 56 mm Hg (35-45); SITE RR
[2017-03-04 15:06] LABS: UREA NITROGEN (BUN) 29 mg/dL (9-23)
[2017-03-04 15:08] LABS: CREATINE KINASE 60 IU/L (1-294); TOTAL CK 60 IU/L (1-294)
[2017-03-04 15:09] LABS: MCV 105.5 FL (83-99)
[2017-03-04 15:13] LABS: TROP-I INTERPRETATION NEGATIVE; TROPONIN-I 0.07 ng/mL (0.0-0.30)
[2017-03-04] MEDS ORDERED: ASPIRIN325 MG PO (16:35)
[2017-03-04] MEDS ORDERED: TYLENOL ARTHRI650 MG PO (16:38)
[2017-03-04] MEDS ORDERED: SYMBICORT60 INHALAT IH (16:40)
[2017-03-04] MEDS ORDERED: XANAX0.25 MG PO (16:41)
[2017-03-04] MEDS ORDERED: REMERON45 MG PO (16:42)
[2017-03-04] MEDS ORDERED: ALLERGY10 M1 PO (16:43)
[2017-03-04] MEDS ORDERED: IRON325 M1 PO (16:44)
[2017-03-04] MEDS ORDERED: K-DUR20 MEQ PO (16:45)
[2017-03-04] MEDS ORDERED: LINZESS145 MCG PO (16:45)
[2017-03-04] MEDS ORDERED: MELATIN3 MG PO (16:47)
[2017-03-04] MEDS ORDERED: CALCIUM 600 +1 EA12 PO (16:47)
[2017-03-04 21:40] VITALS: BP 153/65
[2017-03-04 22:24] LABS: TROP-I INTERPRETATION NEGATIVE; TROPONIN-I 0.07 ng/mL (0.0-0.30)
[2017-03-04 23:00] VITALS: BP 165/74
[2017-03-05 03:00] VITALS: BP 159/67
[2017-03-05 05:37] LABS: HEMATOCRIT 37.8 % (36.0-46.0); MCH 31.6 PG (29.0-34.0); MCHC 29.6 G/DL (30.0-36.0); MCV 106.8 FL (83-99); MEAN PLAT.VOLUME 10.9 uM^3 (9.5-12.4); PLATELET COUNT 228 K/uL (156-360); RBC DIS.WIDTH-CV 18.8 % (11.8-14.6); RBC DIS.WIDTH-SD 74.9 % (39-53); RED BLOOD COUNT 3.54 M/uL (3.80-5.20)
[2017-03-05 05:58] LABS: TROP-I INTERPRETATION NEGATIVE; TROPONIN-I 0.06 ng/mL (0.0-0.30)
[2017-03-05 05:59] LABS: ANION GAP 9 MEQ/L (2-14); CHLORIDE 104 MEQ/L (99-109); GFR ESTIMATE (CALCULATED) 48 mL/min/; GLUCOSE 133 mg/dL (70-99); POTASSIUM 4.2 MEQ/L (3.7-5.4); SAMPLE HEMOLYSIS CHECK 0; SAMPLE ICTERIC CHECK 0; SAMPLE LIPEMIA CHECK 0; SODIUM 144 MEQ/L (136-147); UREA NITROGEN (BUN) 28 mg/dL (9-23)
[2017-03-05 08:25] VITALS: BP 151/64
[2017-03-05 10:56] VITALS: BP 149/80
[2017-03-05 15:28] VITALS: BP 151/73
[2017-03-05 15:35] LABS: TROP-I INTERPRETATION NEGATIVE; TROPONIN-I 0.06 ng/mL (0.0-0.30)
[2017-03-05 18:34] LABS: BASE EXCESS 3.8 mEq/L (-3 to +3); BICARBONATE 32.4 mEq/L (22-26); CARBOXY HGB 2.9 % (0-5); METHEMOGLOBIN 1.4 % (0-1.5)
[2017-03-05 18:35] LABS: PCO2 69 mm Hg (35-45); PO2 56 mm Hg (80-100)
[2017-03-05 18:36] LABS: COMMENTS - BLOOD GASES A+C+; DEVICE NC; O2 FLOW 3 L/MIN; SITE RR; TOTAL RESP RATE 14 resp/min; pH 7.28 (7.35-7.45)
[2017-03-05 19:00] VITALS: BP 103/51
[2017-03-05 23:26] LABS: BASE EXCESS 3.2 mEq/L (-3 to +3); BICARBONATE 32.1 mEq/L (22-26); CARBOXY HGB 2.8 % (0-5); METHEMOGLOBIN 1.4 % (0-1.5); PCO2 70 mm Hg (35-45)
[2017-03-05 23:27] LABS: DEVICE BIPAP; O2 FLOW 15 L/MIN; PEEP 5 CM/H20; PO2 98 mm Hg (80-100); PRES. SUPPORT 12 CM/H2O; SITE LB; pH 7.27 (7.35-7.45)
[2017-03-05 23:30] VITALS: BP 154/77; BP 174/76
[2017-03-05 23:41] LABS: METH RESISTANT S AUREUS PCR NEGATIVE (NEGATIVE)
[2017-03-05 23:42] LABS: PROBE CHECK PASS; SPECIMEN PROCESSING CONTROL PASS
[2017-03-06] VITALS (24 sets, daily range): BP systolic 79–169; BP diastolic 30–76
[2017-03-06 01:36] LABS: BASE EXCESS 3.3 mEq/L (-3 to +3); BICARBONATE 32.5 mEq/L (22-26); CARBOXY HGB 2.9 % (0-5); METHEMOGLOBIN 1.4 % (0-1.5); PCO2 74 mm Hg (35-45)
[2017-03-06 01:37] LABS: DEVICE BIPAP; O2 FLOW 12 L/MIN; PO2 71 mm Hg (80-100); SITE LB; TOTAL RESP RATE 20 resp/min; pH 7.25 (7.35-7.45)
[2017-03-06 01:38] LABS: PEEP 5 CM/H20; PRES. SUPPORT 15 CM/H2O
[2017-03-06 03:49] LABS: HEMATOCRIT 38.1 % (36.0-46.0); MCHC 30.4 G/DL (30.0-36.0); MCV 105.2 FL (83-99); MEAN PLAT.VOLUME 10.9 uM^3 (9.5-12.4); PLATELET COUNT 224 K/uL (156-360); RBC DIS.WIDTH-CV 18.2 % (11.8-14.6); RBC DIS.WIDTH-SD 70.5 % (39-53); RED BLOOD COUNT 3.62 M/uL (3.80-5.20); WHITE BLOOD COUNT 7.5 K/uL (4.1-10.2)
[2017-03-06 03:56] LABS: BASE EXCESS 4.4 mEq/L (-3 to +3); BICARBONATE 30.3 mEq/L (22-26); CARBOXY HGB 2.9 % (0-5); METHEMOGLOBIN 1.4 % (0-1.5); PCO2 50 mm Hg (35-45); PEEP 5 CM/H20; PO2 64 mm Hg (80-100); TIDAL VOLUME 480 ML; TOTAL RESP RATE 20 resp/min; pH 7.39 (7.35-7.45)
[2017-03-06 03:57] LABS: COMMENTS - BLOOD GASES C+; DEVICE VENT; FI02 50 %; MECHANICAL RATE 20 resp/min; MODE AC; SITE LB
[2017-03-06 04:03] LABS: CHLORIDE 103 mEq/L (99-109)
[2017-03-06 04:04] LABS: POTASSIUM 4.2 mEq/L (3.7-5.4); SODIUM 141 mEq/L (136-147)
[2017-03-06 04:05] LABS: GLUCOSE 154 mg/dL (70-99)
[2017-03-06 04:07] LABS: ANION GAP 12 MEQ/L (2-14)
[2017-03-06 04:09] LABS: GFR ESTIMATE (CALCULATED) 44 mL/min/
[2017-03-06 04:10] LABS: UREA NITROGEN (BUN) 25 mg/dL (9-23)
[2017-03-06 04:57] LABS: MAGNESIUM 1.4 mg/dL (1.3-2.7)
[2017-03-06 05:32] LABS: TRIGLYCERIDES 90 MG/DL (Normal: <150)
[2017-03-06 08:00] LABS: BASE EXCESS 10.4 mEq/L (-3 to +3); BICARBONATE 32.6 mEq/L (22-26); CARBOXY HGB 2.5 % (0-5); METHEMOGLOBIN 1.6 % (0-1.5)
[2017-03-06 08:02] LABS: COMMENTS - BLOOD GASES A+C+; DEVICE 840; FI02 60 %; MECHANICAL RATE 20 resp/min; MODE AC; PCO2 34 mm Hg (35-45); PEEP 10 CM/H20; PO2 88 mm Hg (80-100); SITE RR; TIDAL VOLUME 480 ML; TOTAL RESP RATE 20 resp/min
[2017-03-06 08:03] LABS: pH 7.59 (7.35-7.45)
[2017-03-07] VITALS (23 sets, daily range): BP systolic 95–139; BP diastolic 34–61
[2017-03-07 05:05] LABS: HEMATOCRIT 37.4 % (36.0-46.0); MCH 31.8 PG (29.0-34.0); MCHC 31.8 G/DL (30.0-36.0); MEAN PLAT.VOLUME 11.1 uM^3 (9.5-12.4); PLATELET COUNT 210 K/uL (156-360); RBC DIS.WIDTH-CV 18.7 % (11.8-14.6); RBC DIS.WIDTH-SD 68.5 % (39-53); RED BLOOD COUNT 3.74 M/uL (3.80-5.20); WHITE BLOOD COUNT 11.4 K/uL (4.1-10.2)
[2017-03-07 05:12] LABS: CHLORIDE 103 mEq/L (99-109); POTASSIUM 3.6 mEq/L (3.7-5.4); SODIUM 142 mEq/L (136-147)
[2017-03-07 05:14] LABS: GLUCOSE 168 mg/dL (70-99)
[2017-03-07 05:15] LABS: ANION GAP 16 MEQ/L (2-14)
[2017-03-07 05:18] LABS: GFR ESTIMATE (CALCULATED) 40 mL/min/; UREA NITROGEN (BUN) 33 mg/dL (9-23)
[2017-03-07 13:54] LABS: DEVICE PB 840; FI02 60 %; INSPIRATION TIME 0.9 seconds; MECHANICAL RATE 12 resp/min; MODE ACVC+; SITE CENTRAL LINE; TOTAL RESP RATE 19 resp/min
[2017-03-07 13:55] LABS: BICARBONATE 29.9 mEq/L (22-26); CARBOXY HGB 2.2 % (0-5); HEMOGLOBIN 11.7 (11.9-15.5); METHEMOGLOBIN 1.8 % (0-1.5); O2 SATURATION (CALCULATED) 78.7 % (95-99); PCO2 44 mm Hg (35-45); PEEP 5 CM/H20; TIDAL VOLUME 480 ML; pH 7.44 (7.35-7.45)
[2017-03-07 13:56] LABS: BASE EXCESS 5.1 mEq/L (-3 to +3); PO2 41 mm Hg (80-100)
[2017-03-07 21:12] LABS: ADD MIUA? YES; BILIRUBIN NEGATIVE; BLOOD LARGE; COLOR YELLOW ((YELLOW)); GLUCOSE (STRIP) NEGATIVE; KETONES NEGATIVE; LEUKOCYTES NEGATIVE; NITRITE NEGATIVE; PROTEIN (STRIP) 100; SPECIFIC GRAVITY 1.015 (1.000-1.030); UROBILINOGEN 0.2 MG/DL (0.2-1.0)
[2017-03-07 21:35] LABS: BACTERIA 1+ /HPF; EPITHELIAL CELLS RARE /HPF; MUCUS RARE /LPF; RED BLOOD CELLS 30-40 /HPF (0-5); UCUL ADDED? NO; WHITE BLOOD CELLS 0-5 /HPF (0-5)
[2017-03-08] VITALS (23 sets, daily range): BP systolic 110–155; BP diastolic 51–84
[2017-03-08 08:21] LABS: BASE EXCESS 4.1 mEq/L (-3 to +3); BICARBONATE 28.5 mEq/L (22-26); CARBOXY HGB 2.2 % (0-5); COMMENTS - BLOOD GASES A+C+; DEVICE 840; FI02 60 %; METHEMOGLOBIN 1.8 % (0-1.5); PCO2 41 mm Hg (35-45); PO2 54 mm Hg (80-100); SITE RR; pH 7.45 (7.35-7.45)
[2017-03-08 08:22] LABS: MECHANICAL RATE 12 resp/min; MODE ACVC+; PEEP 5 CM/H20; TIDAL VOLUME 480 ML; TOTAL RESP RATE 19 resp/min
[2017-03-08 08:43] LABS: EOSINOPHIL (%) 0 % (0-5); HEMATOCRIT 36.6 % (36.0-46.0); IMMATURE GRANULOCYTE (%) 0.5 % (0.0-0.7); IMMATURE GRANULOCYTE COUNT 0.1 K/uL; INSTRUMENT ABS NEUTROPHIL CT 10.8 K/uL; LYMPHOCYTE COUNT 0.2 K/uL (1.0-2.8); MEAN PLAT.VOLUME 11.3 uM^3 (9.5-12.4); MONOCYTE COUNT 0.2 K/uL (0-0.8); NEUTROPHIL (%) 95.5 % (45-76); NEUTROPHIL COUNT 10.8 K/uL (1.8-6.4); PLATELET COUNT 185 K/uL (156-360); RBC DIS.WIDTH-CV 18.7 % (11.8-14.6); RBC DIS.WIDTH-SD 68.6 % (39-53); RED BLOOD COUNT 3.66 M/uL (3.80-5.20); WHITE BLOOD COUNT 11.4 K/uL (4.1-10.2)
[2017-03-08 09:16] LABS: ANION GAP 13 MEQ/L (2-14); CHLORIDE 104 MEQ/L (99-109); GFR ESTIMATE (CALCULATED) > 59 mL/min/; GLUCOSE 159 mg/dL (70-99); POTASSIUM 3.3 MEQ/L (3.7-5.4); SAMPLE HEMOLYSIS CHECK 0; SAMPLE ICTERIC CHECK 0; SAMPLE LIPEMIA CHECK 0; SODIUM 144 MEQ/L (136-147); UREA NITROGEN (BUN) 37 mg/dL (9-23)
[2017-03-09] VITALS (22 sets, daily range): BP systolic 117–156; BP diastolic 50–86
[2017-03-09 05:50] LABS: ANION GAP 13 MEQ/L (2-14); CHLORIDE 102 MEQ/L (99-109); GFR ESTIMATE (CALCULATED) 48 mL/min/; GLUCOSE 150 mg/dL (70-99); POTASSIUM 3.7 MEQ/L (3.7-5.4); SAMPLE HEMOLYSIS CHECK 0; SAMPLE ICTERIC CHECK 0; SAMPLE LIPEMIA CHECK 0; SODIUM 143 MEQ/L (136-147); UREA NITROGEN (BUN) 41 mg/dL (9-23)
[2017-03-10 05:30] VITALS: BP 123/58
[2017-03-10 05:35] LABS: EOSINOPHIL (%) 0 % (0-5); HEMATOCRIT 37.9 % (36.0-46.0); IMMATURE GRANULOCYTE (%) 0.4 % (0.0-0.7); INSTRUMENT ABS NEUTROPHIL CT 9.1 K/uL; LYMPHOCYTE COUNT 0.2 K/uL (1.0-2.8); MCH 32.2 PG (29.0-34.0); MCHC 31.1 G/DL (30.0-36.0); MCV 103.6 FL (83-99); MEAN PLAT.VOLUME 11.7 uM^3 (9.5-12.4); MONOCYTE (%) 4.8 % (3-12); MONOCYTE COUNT 0.5 K/uL (0-0.8); NEUTROPHIL (%) 92.7 % (45-76); NEUTROPHIL COUNT 9.1 K/uL (1.8-6.4); PLATELET COUNT 163 K/uL (156-360); RBC DIS.WIDTH-CV 17.9 % (11.8-14.6); RED BLOOD COUNT 3.66 M/uL (3.80-5.20); WHITE BLOOD COUNT 9.8 K/uL (4.1-10.2)
[2017-03-10 06:02] LABS: ANION GAP 12 MEQ/L (2-14); CHLORIDE 100 MEQ/L (99-109); GFR ESTIMATE (CALCULATED) 35 mL/min/; GLUCOSE 200 mg/dL (70-99); POTASSIUM 4.3 MEQ/L (3.7-5.4); SAMPLE HEMOLYSIS CHECK 0; SAMPLE ICTERIC CHECK 0; SAMPLE LIPEMIA CHECK 0; SODIUM 139 MEQ/L (136-147); UREA NITROGEN (BUN) 54 mg/dL (9-23)
[2017-03-10 07:48] VITALS: BP 118/56
[2017-03-10 11:03] VITALS: BP 111/59
[2017-03-10 16:21] VITALS: BP 126/61
[2017-03-10 19:38] VITALS: BP 124/56
[2017-03-10 23:19] VITALS: BP 152/65
[2017-03-11 06:04] VITALS: BP 122/59
[2017-03-11 07:35] VITALS: BP 125/60
[2017-03-11 09:27] LABS: ANION GAP 12 MEQ/L (2-14); CHLORIDE 99 MEQ/L (99-109); GFR ESTIMATE (CALCULATED) 35 mL/min/; POTASSIUM 4.4 MEQ/L (3.7-5.4); SAMPLE HEMOLYSIS CHECK 0; SAMPLE ICTERIC CHECK 0; SAMPLE LIPEMIA CHECK 0; SODIUM 138 MEQ/L (136-147); UREA NITROGEN (BUN) 59 mg/dL (9-23)
[2017-03-11 09:28] LABS: GLUCOSE 104 mg/dL (70-99)
[2017-03-11 11:31] VITALS: BP 130/59
[2017-03-11 16:20] VITALS: BP 117/57
[2017-03-11 19:00] VITALS: BP 127/59
[2017-03-11 23:30] VITALS: BP 147/67
[2017-03-12 03:30] VITALS: BP 110/52
[2017-03-12 08:22] VITALS: BP 148/66
[2017-03-12 12:15] VITALS: BP 140/66
[2017-03-12 17:20] VITALS: BP 159/77
[2017-03-12 19:00] VITALS: BP 123/58
[2017-03-12 23:00] VITALS: BP 148/67
[2017-03-13 03:15] VITALS: BP 136/60
[2017-03-13 08:39] VITALS: BP 123/76
[2017-03-13 12:45] VITALS: BP 125/58
[2017-03-13 17:55] VITALS: BP 126/68
[2017-03-13 19:45] VITALS: BP 143/63
[2017-03-13 23:30] VITALS: BP 115/56
[2017-03-14 03:30] VITALS: BP 112/52
[2017-03-14 08:30] VITALS: BP 169/72
[2017-03-14 13:19] VITALS: BP 127/57
[2017-03-14] MEDS ORDERED: THEOPHYLLINE400 MG PO (13:57)
[2017-03-14 16:40] VITALS: BP 143/64
[2017-03-14 19:20] VITALS: BP 120/75
== END 2017-03-14 21:24 | disposition home or self-care (01) | DRG 208 ==
LOC: EME 14:07 → EDOF 18:44 → 4EAST 18:44 → ENRESERV 18:49 → 4EAST 21:24 → ENRESERV 03-05 21:23 → 4WEST 03-05 22:17 → ENRESERV 03-09 20:10 → 4EAST 03-09 22:11
PROVIDERS: Emergency Medicine; Family Medicine; Internal Medicine Cardiovascular Disease; Internal Medicine Critical Care Medicine; Internal Medicine Pulmonary Disease; Surgery
DX: J18.9 Pneumonia, unspecified organism (principal); J44.0 Chronic obstructive pulmonary disease with (acute) lower respiratory infection; I49.5 Sick sinus syndrome; J96.21 Acute and chronic respiratory failure with hypoxia; J96.22 Acute and chronic respiratory failure with hypercapnia; I13.0 Hypertensive heart and chronic kidney disease with heart failure and stage 1 through stage 4 chronic kidney disease, or unspecified chronic kidney disease; I50.33 Acute on chronic diastolic (congestive) heart failure; N18.2 Chronic kidney disease, stage 2 (mild); N28.9 Disorder of kidney and ureter, unspecified; J44.1 Chronic obstructive pulmonary disease with (acute) exacerbation; E87.2 Acidosis; I48.2 Chronic atrial fibrillation; D64.9 Anemia, unspecified; E03.9 Hypothyroidism, unspecified; E78.5 Hyperlipidemia, unspecified; G47.33 Obstructive sleep apnea (adult) (pediatric); I27.20 Pulmonary hypertension, unspecified; I44.1 Atrioventricular block, second degree; K21.9 Gastro-esophageal reflux disease without esophagitis; M10.9 Gout, unspecified; R73.03 Prediabetes; M54.5 Low back pain; F32.9 Major depressive disorder, single episode, unspecified; F41.9 Anxiety disorder, unspecified; M79.7 Fibromyalgia; G89.4 Chronic pain syndrome; E66.01 Morbid (severe) obesity due to excess calories; Z68.42 Body mass index [BMI] 45.0-49.9, adult; Z87.74 Personal history of (corrected) congenital malformations of heart and circulatory system; Z99.81 Dependence on supplemental oxygen; Z79.01 Long term (current) use of anticoagulants; Z91.19 Patient's noncompliance with other medical treatment and regimen; Z79.82 Long term (current) use of aspirin
CPT/HCPCS: 36600; 71010; 71020; 80048; 80048 91; 80053; 80202; 81003; 82550; 82553; 82803; 83735; 83880; 84100; 84439; 84443; 84478; 84484; 85025; 85027; 85610; 85730; 87040; 87070; 87086; 87106; 87205; 87641; 93005; 93306; 94002; 94003; 94640; 94640 76; 94660; 94760; 94799; 97530 GP; 99202; 99281; 99285; C1751; J0696; J1265; J1940; J2250; J2704; J2920; J2930; J3010; J3370; J3475; J7040; J7050; J7512; S0028

== ENCOUNTER 2017-05-31 14:18 | Inpatient (IN) | payer BC ==
[~2017-05-31] VITALS: Ht 149.9 cm; Wt 97.0 kg
[2017-05-31] VITALS (13 sets, daily range): BP systolic 86–154; BP diastolic 28–99
[~2017-05-31 14:18] MED LIST changes: +ALLERGY10 M1 PO; +CALCIUM 600 +1 EA12 PO; +K-DUR20 MEQ PO; +LINZESS145 MCG PO; +MELATIN3 MG PO; +REMERON45 MG PO; +SYMBICORT60 INHALAT IH; +THEOPHYLLINE400 MG PO
[2017-05-31 15:21] LABS: BASOPHIL (%) 0.7 % (0-1); EOSINOPHIL (%) 2.5 % (0-5); EOSINOPHIL COUNT 0.2 K/uL (0-0.3); HEMATOCRIT 25.7 % (36.0-46.0); HEMOGLOBIN 7.8 G/DL (11.9-15.5); IMMATURE GRANULOCYTE (%) 0.3 % (0.0-0.7); LYMPHOCYTE (%) 10.9 % (15-42); LYMPHOCYTE COUNT 0.7 K/uL (1.0-2.8); MCH 30.7 PG (29.0-34.0); MCHC 30.4 G/DL (30.0-36.0); MCV 101.2 FL (83-99); MONOCYTE (%) 10.1 % (3-12); MONOCYTE COUNT 0.6 K/uL (0-0.8); NEUTROPHIL (%) 75.5 % (45-76); NEUTROPHIL COUNT 4.6 K/uL (1.8-6.4); PLATELET COUNT 165 K/uL (156-360); RBC DIS.WIDTH-CV 14.6 % (11.8-14.6); RBC DIS.WIDTH-SD 52.7 % (39-53); RED BLOOD COUNT 2.54 M/uL (3.80-5.20); WHITE BLOOD COUNT 6.1 K/uL (4.1-10.2)
[2017-05-31 15:27] LABS: INTER. NORMALIZED RATIO 3.1
[2017-05-31 15:29] LABS: PTT 39.3 SEC (25-37)
[2017-05-31 15:37] LABS: ALBUMIN 2.3 g/dL (3.2-4.8); CHLORIDE 104 mEq/L (99-109); POTASSIUM 4.2 mEq/L (3.7-5.4)
[2017-05-31 15:38] LABS: SODIUM 136 mEq/L (136-147)
[2017-05-31 15:40] LABS: GLUCOSE 71 mg/dL (70-99); TOTAL PROTEIN 3.3 g/dL (6.4-8.3)
[2017-05-31 15:42] LABS: TOTAL BILIRUBIN 0.5 mg/dL (0.0-1.0)
[2017-05-31 15:43] LABS: ALKALINE PHOSPHATASE 89 IU/L (3-129)
[2017-05-31 15:44] LABS: CREATININE 1.9 mg/dL (0.6-1.3); GFR ESTIMATE (CALCULATED) 28 mL/min/
[2017-05-31 15:45] LABS: AST (GOT) 56 IU/L (2-34); MAGNESIUM 0.9 mg/dL (1.3-2.7); TROP-I INTERPRETATION NEGATIVE; TROPONIN-I 0.15 ng/mL (0.0-0.30); UREA NITROGEN (BUN) 37 mg/dL (9-23)
[2017-05-31 15:47] LABS: ALT (GPT) 37 IU/L (3-49); TOTAL CK 1166 IU/L (1-294)
[2017-05-31 15:48] LABS: CREATINE KINASE 1166 IU/L (1-294)
[2017-05-31 15:54] LABS: CK-MB 17.7 ng/mL (0.0-4.9); CKMB RELATIVE INDEX 1.5 (0.0-3.9)
[2017-05-31] MEDS ORDERED: DULOXETINE HCL60 MG PO (16:16)
[2017-05-31] MEDS ORDERED: MONTELUKAST SOD10 MG PO (16:17)
[2017-05-31] MEDS ORDERED: FUROSEMIDE40 MG PO (16:17)
[2017-05-31 16:59] LABS: THYROTROPIN (TSH) 0.04 MIU/L (0.4-5.5)
[2017-05-31 18:06] LABS: BASE EXCESS -2.1 mEq/L (-3 to +3); BICARBONATE 26.1 mEq/L (22-26); CARBOXY HGB 2.9 % (0-5); METHEMOGLOBIN 0.8 % (0-1.5); PCO2 61 mm Hg (35-45); PO2 68 mm Hg (80-100); pH 7.24 (7.35-7.45)
[2017-05-31 18:07] LABS: COMMENTS - BLOOD GASES A+C+; DEVICE NC; O2 FLOW 10 L/MIN; SITE RB
[2017-05-31 19:14] LABS: APPEARANCE CLOUDY ((CLEAR)); BILIRUBIN NEGATIVE; BLOOD MODERATE; COLOR AMBER ((YELLOW)); GLUCOSE (STRIP) NEGATIVE; KETONES NEGATIVE; LEUKOCYTES LARGE; NITRITE NEGATIVE; PROTEIN (STRIP) 100; UROBILINOGEN 0.2 MG/DL (0.2-1.0)
[2017-05-31 19:52] LABS: BASE EXCESS -2.7 mEq/L (-3 to +3); BICARBONATE 24.4 mEq/L (22-26); CARBOXY HGB 2.8 % (0-5)
[2017-05-31 19:53] LABS: COMMENTS - BLOOD GASES C+; DEVICE VENT; FI02 60 %; MECHANICAL RATE 14 resp/min; MODE AC; PCO2 52 mm Hg (35-45); PO2 89 mm Hg (80-100); SITE LB; TOTAL RESP RATE 15 resp/min; pH 7.28 (7.35-7.45)
[2017-05-31 19:54] LABS: PEEP 5 CM/H20; TIDAL VOLUME 450 ML
[2017-05-31 19:58] LABS: BACTERIA 2+ /HPF; EPITHELIAL CELLS 2+ /HPF; MUCUS NONE SEEN /LPF; RED BLOOD CELLS 20-30 /HPF (0-5); UCUL ADDED? YES; WHITE BLOOD CELLS TNTC /HPF (0-5)
[2017-05-31 19:59] LABS: COARSE GRANULAR CASTS RARE /LPF; HYALINE CASTS 0-5 /LPF
[2017-05-31 22:13] LABS: BASOPHIL (%) 0.9 % (0-1); BASOPHIL COUNT 0.1 K/uL (0-0.1); EOSINOPHIL (%) 1.6 % (0-5); EOSINOPHIL COUNT 0.2 K/uL (0-0.3); HEMATOCRIT 45.7 % (36.0-46.0); HEMOGLOBIN 13.9 G/DL (11.9-15.5); IMMATURE GRANULOCYTE (%) 0.4 % (0.0-0.7); LYMPHOCYTE (%) 8.9 % (15-42); LYMPHOCYTE COUNT 1.2 K/uL (1.0-2.8); MCH 29.6 PG (29.0-34.0); MCHC 30.4 G/DL (30.0-36.0); MONOCYTE (%) 8.5 % (3-12); MONOCYTE COUNT 1.2 K/uL (0-0.8); NEUTROPHIL (%) 79.7 % (45-76); NEUTROPHIL COUNT 10.8 K/uL (1.8-6.4); NRBC (%) 0.2 /100 WBC (0-0); RBC DIS.WIDTH-CV 15.1 % (11.8-14.6); RBC DIS.WIDTH-SD 53.2 % (39-53); WHITE BLOOD COUNT 13.5 K/uL (4.1-10.2)
[2017-05-31 22:14] LABS: MCV 97.2 FL (83-99); PLATELET COUNT 301 K/uL (156-360)
[2017-05-31 22:25] LABS: CHLORIDE 98 MEQ/L (99-109); MAGNESIUM 2.5 mg/dl (1.3-2.7); POTASSIUM 4.3 MEQ/L (3.7-5.4); SODIUM 137 MEQ/L (136-147)
[2017-05-31 22:29] LABS: CREATININE 3.2 MG/DL (0.6-1.3); GFR ESTIMATE (CALCULATED) 16 mL/min/; GLUCOSE 160 mg/dL (70-99); UREA NITROGEN (BUN) 56 mg/dL (9-23)
[2017-05-31 23:00] LABS: BASE EXCESS -4.9 mEq/L (-3 to +3); BICARBONATE 23.1 mEq/L (22-26); CARBOXY HGB 4.2 % (0-5); COMMENTS - BLOOD GASES C+A+; DEVICE VENT; FI02 70 %; MECHANICAL RATE 14 resp/min; METHEMOGLOBIN 0.7 % (0-1.5); MODE AC; PCO2 54 mm Hg (35-45); PEEP 5 CM/H20; PO2 78 mm Hg (80-100); SITE RR; TIDAL VOLUME 450 ML; TOTAL RESP RATE 15 resp/min
[2017-05-31 23:01] LABS: pH 7.24 (7.35-7.45)
[2017-05-31 23:44] LABS: TRIGLYCERIDES 146 MG/DL (Normal: <150)
[2017-06-01] VITALS: BP 149/64
[2017-06-01 00:20] VITALS: BP 131/75
[2017-06-01 00:51] LABS: CREATINE KINASE 2870 IU/L (1-294)
[2017-06-01 01:00] VITALS: BP 121/105
[2017-06-01 01:53] LABS: BASE EXCESS -3.2 mEq/L (-3 to +3); BICARBONATE 24.3 mEq/L (22-26); CARBOXY HGB 2.9 % (0-5); COMMENTS - BLOOD GASES C+; DEVICE VENT; FI02 60 %; MECHANICAL RATE 18 resp/min; METHEMOGLOBIN 1.7 % (0-1.5); MODE AC; PCO2 53 mm Hg (35-45); PEEP 5 CM/H20; PO2 51 mm Hg (80-100); SITE A-LINE; TIDAL VOLUME 450 ML; TOTAL RESP RATE 20 resp/min
[2017-06-01 01:54] LABS: pH 7.27 (7.35-7.45)
[2017-06-01 02:00] VITALS: BP 52/41
[2017-06-01 05:00] VITALS: BP 125/52
[2017-06-01 05:34] LABS: BASE EXCESS -2.6 mEq/L (-3 to +3); BICARBONATE 23.2 mEq/L (22-26); CARBOXY HGB 2.9 % (0-5); METHEMOGLOBIN 1.7 % (0-1.5); PO2 52 mm Hg (80-100); pH 7.34 (7.35-7.45)
[2017-06-01 05:35] LABS: COMMENTS - BLOOD GASES C+; DEVICE VENT; FI02 70 %; MECHANICAL RATE 20 resp/min; MODE AC; PCO2 43 mm Hg (35-45); PEEP 10 CM/H20; SITE A-LINE; TIDAL VOLUME 450 ML; TOTAL RESP RATE 20 resp/min
[2017-06-01 05:44] LABS: BASOPHIL (%) 0.6 % (0-1); BASOPHIL COUNT 0.1 K/uL (0-0.1); EOSINOPHIL (%) 2.9 % (0-5); EOSINOPHIL COUNT 0.4 K/uL (0-0.3); HEMATOCRIT 40.9 % (36.0-46.0); IMMATURE GRANULOCYTE (%) 0.2 % (0.0-0.7); LYMPHOCYTE (%) 4.9 % (15-42); LYMPHOCYTE COUNT 0.7 K/uL (1.0-2.8); MCH 30.2 PG (29.0-34.0); MCHC 31.8 G/DL (30.0-36.0); MCV 95.1 FL (83-99); MONOCYTE (%) 7.1 % (3-12); NEUTROPHIL (%) 84.3 % (45-76); NEUTROPHIL COUNT 12.1 K/uL (1.8-6.4); NRBC (%) 0.6 /100 WBC (0-0); PLATELET COUNT 256 K/uL (156-360); RBC DIS.WIDTH-CV 15.1 % (11.8-14.6); RBC DIS.WIDTH-SD 52.2 % (39-53); WHITE BLOOD COUNT 14.4 K/uL (4.1-10.2)
[2017-06-01 06:23] LABS: CHLORIDE 102 MEQ/L (99-109); GLUCOSE 122 mg/dL (70-99); PHOSPHORUS 4.3 mg/dL (2.5-4.9); POTASSIUM 3.6 MEQ/L (3.7-5.4); SODIUM 141 MEQ/L (136-147); UREA NITROGEN (BUN) 57 mg/dL (9-23)
[2017-06-01 06:36] LABS: CREATININE 2.7 MG/DL (0.6-1.3); GFR ESTIMATE (CALCULATED) 19 mL/min/
[2017-06-01 08:08] LABS: CREATINE KINASE 1771 IU/L (1-294)
[2017-06-01 08:49] LABS: PTT 28.8 SEC (25-37)
[2017-06-01 08:51] LABS: INTER. NORMALIZED RATIO 1.7
[2017-06-01 09:14] LABS: TROP-I INTERPRETATION POSITIVE
[2017-06-01 09:19] LABS: TROPONIN-I 0.76 ng/mL (0.0-0.30)
[2017-06-01 17:39] LABS: TROP-I INTERPRETATION POSITIVE; TROPONIN-I 0.66 ng/mL (0.0-0.30)
[2017-06-01 17:50] LABS: BASE EXCESS 0.9 mEq/L (-3 to +3); BICARBONATE 23.8 mEq/L (22-26); CARBOXY HGB 2.5 % (0-5); METHEMOGLOBIN 1.7 % (0-1.5)
[2017-06-01 17:51] LABS: COMMENTS - BLOOD GASES A+C+; DEVICE VENT; FI02 70 %; MECHANICAL RATE 20 resp/min; MODE AC/VC; PCO2 32 mm Hg (35-45); PEEP 10 CM/H20; PO2 129 mm Hg (80-100); SITE A LINE; TIDAL VOLUME 450 ML; TOTAL RESP RATE 20 resp/min; pH 7.48 (7.35-7.45)
== END 2017-06-01 21:20 | DRG 871 ==
LOC: EME 14:18 → 4WEST 17:49 → EDOF 17:49 → ENRESERV 17:50 → 4WEST 20:49
PROVIDERS: Emergency Medicine; Internal Medicine Cardiovascular Disease; Specialist; Surgery
PROC: 5A12012 Performance of Cardiac Output, Single, Manual (ICD-10-PCS; principal; 2017-05-31)
PROC: 5A1935Z Respiratory Ventilation, Less than 24 Consecutive Hours (ICD-10-PCS; principal; 2017-05-31)
PROC: 0BH17EZ Insertion of Endotracheal Airway into Trachea, Via Natural or Artificial Opening (ICD-10-PCS; principal; 2017-05-31)
PROC: 30233L1 Transfusion of Nonautologous Fresh Plasma into Peripheral Vein, Percutaneous Approach (ICD-10-PCS; principal; 2017-05-31)
PROC: 02HV33Z Insertion of Infusion Device into Superior Vena Cava, Percutaneous Approach (ICD-10-PCS; principal; 2017-05-31)
DX: A41.9 Sepsis, unspecified organism (principal); J96.90 Respiratory failure, unspecified, unspecified whether with hypoxia or hypercapnia; R57.0 Cardiogenic shock; I46.9 Cardiac arrest, cause unspecified; N17.9 Acute kidney failure, unspecified; G47.33 Obstructive sleep apnea (adult) (pediatric); E83.42 Hypomagnesemia; E87.2 Acidosis; I48.2 Chronic atrial fibrillation; E66.01 Morbid (severe) obesity due to excess calories; K92.2 Gastrointestinal hemorrhage, unspecified; M62.82 Rhabdomyolysis; I49.5 Sick sinus syndrome; J44.9 Chronic obstructive pulmonary disease, unspecified; D64.9 Anemia, unspecified; I10 Essential (primary) hypertension; F32.9 Major depressive disorder, single episode, unspecified; F41.9 Anxiety disorder, unspecified; J96.20 Acute and chronic respiratory failure, unspecified whether with hypoxia or hypercapnia; E03.9 Hypothyroidism, unspecified; M10.9 Gout, unspecified; L40.9 Psoriasis, unspecified; K21.9 Gastro-esophageal reflux disease without esophagitis; M79.7 Fibromyalgia; R40.0 Somnolence; E83.51 Hypocalcemia; N39.0 Urinary tract infection, site not specified; I11.0 Hypertensive heart disease with heart failure; Q21.1 Atrial septal defect; Q24.9 Congenital malformation of heart, unspecified; Z90.49 Acquired absence of other specified parts of digestive tract; Z79.01 Long term (current) use of anticoagulants; Z68.41 Body mass index [BMI] 40.0-44.9, adult; R65.21 Severe sepsis with septic shock; H11.32 Conjunctival hemorrhage, left eye; W18.2XXA Fall in (into) shower or empty bathtub, initial encounter; Y93.F1 Activity, caregiving, bathing; Y92.9 Unspecified place or not applicable; Z87.11 Personal history of peptic ulcer disease; Z87.74 Personal history of (corrected) congenital malformations of heart and circulatory system; Z99.81 Dependence on supplemental oxygen; R40.20 Unspecified coma; E87.4 Mixed disorder of acid-base balance
CPT/HCPCS: 36600; 70450; 70486; 71045; 72125; 80048; 80048 91; 80053; 81003; 82330; 82533 91; 82550; 82550 91; 82553; 82803; 82948; 83605; 83735; 83880; 84100; 84439; 84443; 84478; 84484; 85025; 85025 91; 85610; 85730; 86850; 86900; 86901; 86920; 87040; 87070; 87077; 87086; 87186; 87205; 87641; 93005; 94002; 94003; 94640; 94640 76; 94760; 99202; 99281; 99285; C1751; C9113; J0171; J0282; J0330; J0461; J0692; J1265; J1940; J2250; J2930; J3010; J3370; J3475; J3480; J7030; J7040; J7050; P9016; P9017; S0028